=== PATIENT | female | born 1955 | race Caucasian/White ===

== ENCOUNTER 2019-02-25 12:45 | Inpatient (IN) | payer MEDICARE ==
[~2019-02-25] VITALS: Ht 167.6 cm; Wt 59.4 kg
[2019-02-25] VITALS (16 sets, daily range): BP systolic 80–117; BP diastolic 41–69
[~2019-02-25 12:45] MED LIST: ALPRAZOLAM 0.50.5 M1; BUSPIRONE HCL10 MG PO; CALCIUM 600 +1 EAC1; COUMADIN 5 MG TA5 M1; CYMBALTA60 MG; CYMBALTA60 MG PO; DESYREL100 MG; ESTRACE0.5 MG; FIBER0.52 G1 PO; FLECAINIDE ACET50 M1 PO; FOLIC ACID1 MG; HAWTHORN150 MG PO; HYDROCODON-ACE1 EAC7; KLOR-CON 1010 MEQ PO; LANOXIN 0.120.125 M1; LASIX 20 MG TAB20 MG PO; NEPHROCAPS SOFT1 CAP PO; NEURONTIN 300300 M1 PO; PACERONE 200 M200 M1; PHENERGAN 25 MG25 M1 PO; REMERON15 MG PO; REQUIP XL2 MG; SENNA PO; TOPROL XL25 MG PO; TRAZODONE HCL100 MG PO; UNICOMPLEX M TA1 TA1 PO; VITCB500GO
[2019-02-25 13:19] LABS: INFLUENZA B ANTIGEN None Detected (None Detect)
[2019-02-25 13:36] LABS: HEMATOCRIT 36.4 % (37.0-47.0); HEMOGLOBIN 12.2 gm/dL (12.0-15.0); MCH 31.9 pg (26.0-34.0); MCHC 33.5 g/dL (28.0-37.0); MCV 95.2 fL (80.0-100.0); MPV 8.6 fl. (7.2-11.1); NUCLEATED RBCS 0 /100WBC; PLATELET COUNT* 150 thou/uL (150-400); RBC 3.82 mil/uL (4.20-5.00); RDW-CV 13.7 % (10.5-14.5); WBC 9.2 thou/uL (4.0-11.0)
[2019-02-25 13:54] LABS: ABSOLUTE EOSINOPHILS 0.3 thou/uL (0.0-0.7); ABSOLUTE LYMPHOCYTES 0.3 thou/uL (0.8-5.3); ABSOLUTE MONOCYTES 0.1 thou/uL (0.0-1.2); ABSOLUTE NEUTROPHILS 8.6 thou/uL (1.6-8.1); PLATELET ESTIMATE ADEQUATE; PROMYELOCYTES 1 %
[2019-02-25 13:55] LABS: CALCIUM 8.6 mg/dL (8.5-10.1); CREATININE 1.3 mg/dL (0.6-1.3); POTASSIUM 4.5 mmol/L (3.5-5.1)
[2019-02-25 13:58] LABS: ALBUMIN 3.4 g/dL (3.4-5.0); TOTAL PROTEIN 7.6 g/dL (6.4-8.2)
[2019-02-25 14:03] LABS: TROPONIN-I LEVEL 1.68 ng/mL (<0.06)
[2019-02-25 14:25] LABS: APTT 34.1 Seconds (25.0-31.3); INR 1.4; PROTIME 14.2 Seconds (9.20-11.50)
--- NOTE | 2019-02-25 16:31 | EKG ---
[place] [address] ELECTROCARDIOGRAM REPORT Name: BRENDALUZ IVETTE Room: [address] ADM IN M.R.#: [id number] Admission: 02/25/19 Attend Phys: Naye Giordano MD Discharge: Date of : 53 Report #: [id number] THIS REPORT FOR: //name// [facility] ED Test Date: 2019-02-25 Test Time: 13:11:33 Pat Name: LUZ GUTIERREZ Department: Room: [facility] Gender: F Computer Systems Technician: CARLEY : 1955 Requested By: Jaimee Lott Order Number: [id number] MD: Zachary Maria Measurements Intervals [place] Rate: 123 P: PA: QRS: 30 QRSD: 85 T: 242 QT: 261 QTc: 374 Interpretive Statements Atrial fibrillation Low voltage, extremity leads Repol abnrm suggests ischemia, diffuse leads Baseline wander in lead(s) II,III,aVR,aVL,aVF Compared to ECG 05/25/2017 16:52:12 Low QRS voltage now present Early repolarization now present Possible ischemia now present Sinus rhythm no longer present Electronically Signed On 02-25-2019 16:31:35 CDT by Zachary Maria [email or web address] <ELECTRONICALLY SIGNED> By: Zachary Maria MD, [facility] 02/25/19 1631 10 10 Zachary Maria MD, [facility] /EPI
--- NOTE | 2019-02-25 18:41 | 2DMMODE ---
[place] [address] 2 D/M-MODE ECHOCARDIOGRAM Name: BRENDALUZ IVETTE Room: [address] IN [facility]#: [id number] Admission: 02/25/19 Attend Phys: Naye Giordano, Discharge: Date of : 53 Date of Service: 02/25/19 1840 Report #: [id number] THIS REPORT FOR: //name// APPROVED REPORT Study performed: 02/25/2019 16:54:00 EXAM: Comprehensive 2D, Doppler, and color-flow Echocardiogram Patient Location: In-Patient Room #: [facility] [place] Status: routine BSA: 1.62 HR: 107 bpm BP: 92/42 mmHg Rhythm: Atrial Fibrillation Other Information Study Quality: Good Indications Elevated Troponin 2D Dimensions IVSd: 8.40 (7-11mm) LVOT Diam: 20.87 (18-24mm) LVDd: 46.83 mm PWd: 10.55 (7-11mm) Ascending Ao: 28.10 (22-36mm) LVDs: 27.83 (25-40mm) Aortic Root: 30.75 mm Volumes Left Atrial Volume (Systole) LA ESV Index: 45.20 mL/m2 Aortic Valve AoV Peak Hoang.: 1.20 m/s AO Peak Gr.: 5.78 mmHg LVOT Max P.32 mmHg AO Mean Gr.: 2.86 mmHg LVOT Mean P.57 mmHg LVOT Max V: 0.91 m/s AO V2 VTI: 18.23 cm LVOT Mean V: 0.57 m/s PINKY (VTI): 2.78 cm2 LVOT V1 VTI: 14.85 cm Mitral Valve MV Decel. Time: 156.74 ms MV PHT: 45.46 ms MVA (PHT): 4.84 [place]2 [place] [address] 2 D/M-MODE ECHOCARDIOGRAM Name: BRENDALUZ Room: [address] IN [facility].#: [id number] Admission: 02/25/19 Attend Phys: Naye Giordano, Discharge: Date of : 53 Date of Service: 02/25/19 1840 Report #: [id number] TDI Medial E' Hoang.: 0.16 m/s Lateral E' Hoang.: 0.17 m/s Pulmonary Valve PV Peak Hoang.: 0.89 m/s PV Peak Gr.: 3.14 mmHg Tricuspid Valve RAP Estimate: 5.00 mmHg TR Peak Gr.: 23.66 mmHg RVSP: 28.00 mmHg PA Pressure: 28.00 mmHg Left Ventricle The left ventricle is normal size. There is normal LV segmental wall motion. There is normal left ventricular wall thickness. Left ventricular systolic function is normal. LVEF is 55-60%. This study is not technically sufficient to allow evaluation of the LV diastolic function due to atrial fibrillation. Right Ventricle The right ventricle is normal size. The right ventricular systolic function is normal. Atria Left atrium is moderately dilated. The right atrium size is normal. Aortic Valve The aortic valve is normal in structure. No aortic regurgitation is present. There is no aortic valvular stenosis. Mitral Valve There is mitral annular calcification. Moderate mitral regurgitation. No evidence of mitral valve stenosis. Tricuspid Valve The tricuspid valve is normal in structure. Mild tricuspid regurgitation. Mild pulmonary hypertension. Pulmonic Valve The pulmonary valve is normal in structure. There is no pulmonic valvular regurgitation. Great Vessels The aortic root is normal in size. IVC [place] [address] 2 D/M-MODE ECHOCARDIOGRAM Name: LUZ GUTIERREZ Room: [address]#: [id number] Admission: 02/25/19 Attend Phys: Naye Giordano, Discharge: Date of : 53 Date of Service: 02/25/19 1840 Report #: [id number] <50% with inspiration. Pericardium There is no pericardial effusion. <Conclusion> The left ventricle is normal size. There is normal left ventricular wall thickness. Left ventricular systolic function is normal. LVEF is 55-60%. This study is not technically sufficient to allow evaluation of the LV diastolic function due to atrial fibrillation. Left atrium is moderately dilated. Moderate mitral regurgitation. Mild tricuspid regurgitation. Mild pulmonary hypertension. <ELECTRONICALLY SIGNED> By: Moses Perez MD, FACC 02/25/191839 39 39 Moses Perez MD, FACC /INF
[2019-02-26] VITALS (17 sets, daily range): BP systolic 93–113; BP diastolic 45–67
[2019-02-26 00:47] LABS: URINE BILIRUBIN NEGATIVE (Negative); URINE BLOOD TRACE (Negative); URINE CLARITY CLEAR; URINE COLOR YELLOW; URINE GLUCOSE-RANDOM NEGATIVE (Negative); URINE KETONES NEGATIVE (Negative); URINE LEUKOCYTES-REFLEX NEGATIVE (Negative); URINE NITRITE-REFLEX NEGATIVE (Negative); URINE PROTEIN NEGATIVE (Negative)
[2019-02-26 04:19] LABS: HEMATOCRIT 30.5 % (37.0-47.0); MCH 32.1 pg (26.0-34.0); MCHC 33.6 g/dL (28.0-37.0); MCV 95.4 fL (80.0-100.0); MPV 9.1 fl. (7.2-11.1); RBC 3.19 mil/uL (4.20-5.00); RDW-CV 13.5 % (10.5-14.5); WBC 8.7 thou/uL (4.0-11.0)
[2019-02-26 04:25] LABS: HEMOGLOBIN 10.2 gm/dL (12.0-15.0)
[2019-02-26 05:46] LABS: ALBUMIN 2.4 g/dL (3.4-5.0); CALCIUM 7.7 mg/dL (8.5-10.1); CREATININE 0.9 mg/dL (0.6-1.3); MAGNESIUM 1.6 mg/dL (1.8-2.4); POTASSIUM 4.6 mmol/L (3.5-5.1); TOTAL BILIRUBIN 0.4 mg/dL (<0.1-1.0); TOTAL PROTEIN 5.8 g/dL (6.4-8.2)
[2019-02-26 05:56] LABS: TROPONIN-I LEVEL 1.07 ng/mL (<0.06)
--- NOTE | 2019-02-26 11:52 | EKG ---
[place] [address] ELECTROCARDIOGRAM REPORT Name: LUZ GUTIERREZ Room: [address] ADM IN M.R.#: [id number] Admission: 02/25/19 Attend Phys: Naye Giordano MD Discharge: Date of : 53 Report #: [id number] THIS REPORT FOR: //name// [facility] ED Test Date: 2019-02-25 Test Time: 15:21:42 Pat Name: LUZ GUTIERREZ Department: Room: [address] Gender: F Admission Specialist: Rehan [place] : 1955 Requested By: Jaimee Lott Order Number: [id number] Padmaja MD: Nitish Nicole Measurements Intervals [place] Rate: 106 P: [place]: QRS: 39 QRSD: 83 T: 229 QT: 273 QTc: 363 Interpretive Statements Atrial fibrillation Low voltage, extremity leads Nonspecific repol abnormality, diffuse leads Compared to ECG 02/25/2019 13:11:33 st changes less prominent Electronically Signed On 02-26-2019 11:52:25 CDT by Nitish Nicole [email or web address] <ELECTRONICALLY SIGNED> By: Nitish Nicole MD, [facility] 02/26/19 1152 1521 1521 Nitish Nicole MD, [facility] /EPI
[2019-02-27] VITALS (7 sets, daily range): BP systolic 99–122; BP diastolic 53–65
[2019-02-27 05:17] LABS: HEMATOCRIT 29.3 % (37.0-47.0); HEMOGLOBIN 9.7 gm/dL (12.0-15.0); MCH 31.7 pg (26.0-34.0); MCHC 33.2 g/dL (28.0-37.0); MCV 95.7 fL (80.0-100.0); MPV 9.2 fl. (7.2-11.1); RBC 3.06 mil/uL (4.20-5.00); RDW-CV 13.4 % (10.5-14.5); WBC 5.1 thou/uL (4.0-11.0)
[2019-02-27 05:37] LABS: ALBUMIN 2.2 g/dL (3.4-5.0); ALKALINE PHOSPHATASE 59 U/L (46-116); ANION GAP 5 mmol/L (7-16); BUN 14 mg/dL (7-18); CALCIUM 7.9 mg/dL (8.5-10.1); CHLORIDE 109 mmol/L (98-107); CHOLESTEROL 114 mg/dL (<200); CO2 31 mmol/L (21-32); CREATININE 0.8 mg/dL (0.6-1.3); GLUCOSE 89 mg/dL (70-99); HDL CHOLESTEROL 42 mg/dL (>40); LDL CHOLESTEROL 55 mg/dL (<100); MAGNESIUM 1.5 mg/dL (1.8-2.4); POTASSIUM 3.7 mmol/L (3.5-5.1); SGOT 48 U/L (15-37); SGPT 37 U/L (30-65); SODIUM 145 mmol/L (136-145); TC:HDL 2.7 Ratio (Not establshd); TOTAL BILIRUBIN 0.3 mg/dL (<0.1-1.0); TOTAL PROTEIN 5.4 g/dL (6.4-8.2); TRIGLYCERIDE 88 mg/dL (<150); VLDL 18 mg/dL (<40)
[2019-02-27 06:23] LABS: SERUM ASSESSMENT CLEAR
[2019-02-28] VITALS: BP 100/65
[2019-02-28 04:00] VITALS: BP 110/71
[2019-02-28 04:48] LABS: HEMATOCRIT 30.5 % (37.0-47.0); HEMOGLOBIN 10.3 gm/dL (12.0-15.0); MCH 32.1 pg (26.0-34.0); MCHC 33.7 g/dL (28.0-37.0); MCV 95.3 fL (80.0-100.0); MPV 9.5 fl. (7.2-11.1); RBC 3.2 mil/uL (4.20-5.00); RDW-CV 13.3 % (10.5-14.5); WBC 5.6 thou/uL (4.0-11.0)
[2019-02-28 04:56] LABS: CREATININE 0.8 mg/dL (0.6-1.3); MAGNESIUM 1.8 mg/dL (1.8-2.4)
[2019-02-28 07:47] VITALS: BP 103/57
[2019-02-28 12:08] VITALS: BP 109/51
[2019-02-28 17:23] VITALS: BP 109/57
[2019-02-28 20:00] VITALS: BP 100/40
[2019-03-01] VITALS: BP 126/63
[2019-03-01 04:00] VITALS: BP 112/69
[2019-03-01 08:00] VITALS: BP 141/84
[2019-03-01 11:56] VITALS: BP 114/67
[2019-03-01 16:45] VITALS: BP 102/47
[2019-03-01 20:00] VITALS: BP 105/54
[2019-03-02] VITALS: BP 101/49
[2019-03-02 04:00] VITALS: BP 112/66
[2019-03-02 09:34] VITALS: BP 103/57
[2019-03-02 12:00] VITALS: BP 103/57
[2019-03-02] MEDS ORDERED: FLOMAX0.4 MG PO (12:41)
[2019-03-02] MEDS ORDERED: FERREX 150 PLU1 EAC1 PO (12:41)
[2019-03-02] MEDS ORDERED: LANOXIN125 MCG PO (12:41)
[2019-03-02] MEDS ORDERED: TRAMADOL 50 MG50 MG PO (12:41)
[2019-03-02] MEDS ORDERED: ACETAMINOPHEN325 M1 PO (12:41)
[2019-03-02] MEDS ORDERED: ASPIRIN325 PO ×2 (12:41→14:39)
[2019-03-02] MEDS ORDERED: CEFDINIR300 MG PO (12:41)
[2019-03-02 14:47] VITALS: BP 103/57
== END 2019-03-02 16:00 | DRG 871 ==
LOC: M.ERS 12:45 → M.TBA-ER 13:41 → M.2W 13:41 → M.ICU 15:36 → M.2W 02-26 20:17
PROVIDERS: Internal Medicine Cardiovascular Disease; Physician Assistant; ADMIT Internal Medicine
PROC: 02HV33Z Insertion of Infusion Device into Superior Vena Cava, Percutaneous Approach (ICD-10-PCS; principal; 2019-02-25)
DX: A41.9 Sepsis, unspecified organism (principal); J96.01 Acute respiratory failure with hypoxia; I21.4 Non-ST elevation (NSTEMI) myocardial infarction; J10.08 Influenza due to other identified influenza virus with other specified pneumonia; J15.9 Unspecified bacterial pneumonia; J44.1 Chronic obstructive pulmonary disease with (acute) exacerbation; I47.1 Supraventricular tachycardia; F32.9 Major depressive disorder, single episode, unspecified; R33.9 Retention of urine, unspecified; H54.40 Blindness, one eye, unspecified eye; G25.81 Restless legs syndrome; I48.0 Paroxysmal atrial fibrillation; D64.9 Anemia, unspecified; M48.00 Spinal stenosis, site unspecified; G47.33 Obstructive sleep apnea (adult) (pediatric); F17.210 Nicotine dependence, cigarettes, uncomplicated; Z90.710 Acquired absence of both cervix and uterus; Z99.3 Dependence on wheelchair; Z90.79 Acquired absence of other genital organ(s); Z90.721 Acquired absence of ovaries, unilateral; Z90.49 Acquired absence of other specified parts of digestive tract; Z79.899 Other long term (current) drug therapy